=== PATIENT | female | born 1995 | race Caucasian/White ===

== ENCOUNTER 2016-07-02 03:02 | Inpatient (IN) | payer OTHER ==
[~2016-07-02] VITALS: Ht 152.4 cm; Wt 69.0 kg
[2016-07-02] VITALS (36 sets, daily range): BP systolic 101–138; BP diastolic 55–85
[~2016-07-02 03:02] MED LIST: ABILIFY5 MG PO; AMOXICILLIN500 MG PO; CLONIDINE HCL0.1 MG PO; CORTISPORIN-TC10 M1 LEFT EAR; DEXMETHYLPHENID10 MG PO; JUNEL FE 1.5-31 EACH PO; MACROBID100 MG PO; METH54T PO; METHYLPHENIDATE10 M1 PO; MUCINEX D ER T1 EACH PO; NAPROSYN500 MG PO; PREDNISONE20 MG PO; PRENATAL TABLE1 EAC3 PO; PROMETHAZINE HC25 M1 PO; ZOFRAN ODT4 MG PO
[2016-07-02 08:42] LABS: EOSINOPHIL (%) 0 % (0-5); HEMATOCRIT 31.3 % (36.0-46.0); IMMATURE GRANULOCYTE (%) 0.7 % (0.0-0.7); IMMATURE GRANULOCYTE COUNT 0.2 K/uL; INSTRUMENT ABS NEUTROPHIL CT 21.7 K/uL; LYMPHOCYTE COUNT 1.3 K/uL (1.0-2.8); MCH 27.8 PG (29.0-34.0); MCHC 31.9 G/DL (30.0-36.0); MCV 86.9 FL (83-99); MEAN PLAT.VOLUME 9.9 uM^3 (9.5-12.4); MONOCYTE (%) 7.5 % (3-12); MONOCYTE COUNT 1.9 K/uL (0-0.8); NEUTROPHIL (%) 86.6 % (45-76); NEUTROPHIL COUNT 21.7 K/uL (1.8-6.4); PLATELET COUNT 353 K/uL (156-360); RBC DIS.WIDTH-CV 13.8 % (11.8-14.6); RBC DIS.WIDTH-SD 44.2 % (39-53); WHITE BLOOD COUNT 25.1 K/uL (4.1-10.2)
[2016-07-03 00:32] VITALS: BP 110/56
[2016-07-03 03:29] VITALS: BP 98/62
[2016-07-03 07:39] LABS: HEMATOCRIT 26.6 % (36.0-46.0); MCH 28.5 PG (29.0-34.0); MCHC 32.3 G/DL (30.0-36.0); MCV 88.1 FL (83-99); MEAN PLAT.VOLUME 10.2 uM^3 (9.5-12.4); PLATELET COUNT 274 K/uL (156-360); RBC DIS.WIDTH-CV 14.3 % (11.8-14.6); RBC DIS.WIDTH-SD 46.2 % (39-53); RED BLOOD COUNT 3.02 M/uL (3.80-5.20); WHITE BLOOD COUNT 29.2 K/uL (4.1-10.2)
[2016-07-03 07:47] VITALS: BP 113/73
[2016-07-03 08:06] LABS: BASOPHIL COUNT 0.1 K/uL (0-0.1); EOSINOPHIL (%) 0.1 % (0-5); IMMATURE GRANULOCYTE (%) 2.2 % (0.0-0.7); IMMATURE GRANULOCYTE COUNT 0.7 K/uL; INSTRUMENT ABS NEUTROPHIL CT 24.7 K/uL; LYMPHOCYTE COUNT 1.6 K/uL (1.0-2.8); MONOCYTE (%) 7.4 % (3-12); MONOCYTE COUNT 2.2 K/uL (0-0.8); NEUTROPHIL (%) 84.6 % (45-76); NEUTROPHIL COUNT 24.7 K/uL (1.8-6.4)
[2016-07-03 14:42] VITALS: BP 102/64
[2016-07-03 22:40] VITALS: BP 101/64
[2016-07-04 07:58] VITALS: BP 123/59
[2016-07-04 15:24] VITALS: BP 103/68
== END 2016-07-04 19:10 | disposition home or self-care (01) | DRG 775 ==
LOC: LDRP-OP → 2WEST 03:03
PROVIDERS: Advanced Practice Midwife; Obstetrics & Gynecology Obstetrics
PROC: 0KQM0ZZ Repair Perineum Muscle, Open Approach (ICD-10-PCS; principal; 2016-07-02)
PROC: 3E0R3CZ (ICD-10-PCS; principal; 2016-07-02)
PROC: 00HU33Z Insertion of Infusion Device into Spinal Canal, Percutaneous Approach (ICD-10-PCS; principal; 2016-07-02)
PROC: 3E033VJ Introduction of Other Hormone into Peripheral Vein, Percutaneous Approach (ICD-10-PCS; principal; 2016-07-02)
PROC: 10E0XZZ Delivery of Products of Conception, External Approach (ICD-10-PCS; principal; 2016-07-02)
PROC: 0W8NXZZ Division of Female Perineum, External Approach (ICD-10-PCS; principal; 2016-07-02)
DX: O99.824 Streptococcus B carrier state complicating childbirth (principal); O70.1 Second degree perineal laceration during delivery; O99.334 Smoking (tobacco) complicating childbirth; F17.200 Nicotine dependence, unspecified, uncomplicated; Z37.0 Single live birth; Z3A.40 40 weeks gestation of pregnancy
CPT/HCPCS: 85025; C1755; J2405; J2540; J3010; J7120